=== PATIENT | female | born 1985 | race Caucasian/White ===

== ENCOUNTER → 2018-02-24 09:16 | Outpatient (CLI) | payer OTHER, SELFPAY ==
--- NOTE | 2018-02-24 | DI.US.S_ITS ---
PROCEDURE: US OB >= 14 WEEKS FETUS INDICATIONS: 20 WEEK SURVEY OUTSIDE/PRIOR DATING DATA: Last menstrual period (LMP): 12/03/16. LMP-based estimated date of delivery (MODESTO): 07/09/18. First dating scan (date and location): 02/24/18. Estimated date of delivery (MODESTO) from first dating scan: 07/10/18. TECHNIQUE: Real-time scanning was performed of the fetus, with image documentation and biometric measurements. COMPARISON: None. FINDINGS: General: A single living intrauterine gestation is present. Presentation: Breech. Placenta: Placental position is anterior, without previa. Amniotic fluid index: 15 cm, normal range is 5-24 cm. heart rate: 145 beats per minute. Maternal cervical canal: 4.2 cm long. Normal lower limit is 2.5 cm. biometrics: Biparietal diameter: 4.8 cm 20 weeks 4 days Head circumference: 18.1 cm 20 weeks 4 days Abdominal circumference: 15.4 cm 20 weeks 4 days Femur length: 3.4 cm 20 weeks 4 days Estimated gestational age from initial scan: not applicable. Composite gestational age from present scan: 20 weeks 4 days Estimated weight and percentile: 363 g 37th percentile Measurement variability for biometric dating: +/- 7 days from 14 weeks to 15 weeks 6 days gestation, +/- 10 days from 16 weeks to 21 weeks 6 days gestation, +/- 2 weeks from 22 weeks to 27 weeks 6 days gestation, +/- 3 weeks for 28 weeks gestation or later. weight reference: 4500 g or EFW >90/95% is considered macrosomia or large for gestational age. EFW <10% is small for gestational age. EFW 5% or less is considered intra-uterine growth restriction. Anatomic survey: Neuro: Ventricles are non-dilated at less than 10 mm. Cisterna magna is normal at 3-11 mm. Cerebellum is normal in size and morphology. Nuchal skin fold: Normal at less than 6 mm between 14-21 weeks gestational age. Face: Nose and lips, facial profile are normal. Spine: No evidence for spina bifida. Heart: 4-chambered heart is present, with normal ventricular outflow tracts. Diaphragm: Diaphragm is intact. Stomach: Left-sided stomach is present. Kidneys: No hydronephrosis. Normal is less than 5 mm in 2nd trimester, less than 7 mm in 3rd trimester. Cord: 3-vessel cord has orthotopic insertion. Bladder: Normal in size. Extremities: All 4 extremities identified. IMPRESSION: 1. Single intrauterine with ultrasound gestational age today is 20 weeks 4 days corresponding to ultrasound MODESTO of 07/10/18. 2. Anatomy is within normal limits. Dictated by: Marquita Garcia M.D. on 02/24/2018 at 11:28 Approved by: Marquita Garcia M.D. on 02/24/2018 at 11:52
== END ==
PROVIDERS: Family Provider Obstetrics & Gynecology; PCP Obstetrics & Gynecology; Visit Provider Obstetrics & Gynecology
DX: Z34.92 Encounter for supervision of normal pregnancy, unspecified, second trimester (principal); Z3A.20 20 weeks gestation of pregnancy
CPT/HCPCS: 76811

== ENCOUNTER → 2018-04-05 16:04 | Outpatient (CLI) | payer OTHER, SELFPAY ==
[2018-04-05 18:25] LABS: Hematocrit 35.2 % (36-46); Hemoglobin 12.1 g/dL (12.0-16.0)
[2018-04-05 20:05] LABS: GTT (PREG) 1 Hour PP 50gm Dose 127 mg/dL (76-139)
== END ==
PROVIDERS: PCP Obstetrics & Gynecology; Visit Provider Obstetrics & Gynecology
DX: Z36.9 Encounter for antenatal screening, unspecified (principal); Z3A.26 26 weeks gestation of pregnancy
CPT/HCPCS: 36415; 82950; 85014; 85018

== ENCOUNTER 2018-05-19 15:10 | Outpatient (CLI) | payer OTHER, SELFPAY ==
--- NOTE | 2018-05-19 16:13 | PM.OBTRLD ---
Visit Information Visit Information Date of evaluation: 05/19/18 Primary OB Provider: Dinora Quijano On-call OB Provider: Sonia Bassett Reason for Evaluation: Yes pre-term labor Comments/Additional reasons for admission: Patient comes in for evaluation due to feeling more vaginal fluid and some mild cramping Vital Signs Vital Signs: Blood pressure 129/80, pulse of 87 Evaluation Evaluation Baseline heart rate: 125 Variability: Moderate (11-25) monitor accelerations: Present monitor decelerations: Absent Contraction Frequency (minutes): 0 Non-invasive Membranes Rupture Test: negative Diagnosis, Plan/Disposition Final Diagnosis (1) Premature labor: Current Visit: No Status: Acute (2) 32 weeks gestation of : Current Visit: No Status: Acute Plan/Disposition Plan: AmniSure negative no contractions on the monitor patient is reassured. She is to return if her symptoms worsen otherwise keep her normal OB appointment.
== END 2018-05-19 16:16 | disposition home or self-care (01) ==
LOC: LABOR 15:52 → OB 05-20 09:59
PROVIDERS: PCP Obstetrics & Gynecology; Visit Provider Specialist
DX: Z03.71 Encounter for suspected problem with amniotic cavity and membrane ruled out (principal); R10.2 Pelvic and perineal pain; Z3A.32 32 weeks gestation of pregnancy
CPT/HCPCS: 59025; 84112; G0378; G0379

== ENCOUNTER → 2018-06-10 13:45 | Outpatient (CLI) | payer OTHER, SELFPAY ==
[2018-06-11 11:24] LABS: Strep Grp B PCR NEG for Grp B Strep
== END ==
PROVIDERS: Family Provider Obstetrics & Gynecology; PCP Obstetrics & Gynecology; Visit Provider Obstetrics & Gynecology
DX: Z34.03 Encounter for supervision of normal first pregnancy, third trimester (principal)
CPT/HCPCS: 87653

== ENCOUNTER → 2018-06-23 18:46 | Outpatient (REF) | payer OTHER, SELFPAY ==
[2018-06-23 20:18] LABS: Urine N gonorrhoeae NOT DETECTED
[2018-06-23 21:44] LABS: Urine Chlamydia NOT DETECTED
== END ==
LOC: LAB 18:46
PROVIDERS: Family Provider Obstetrics & Gynecology; PCP Obstetrics & Gynecology; Visit Provider Specialist
DX: Z34.03 Encounter for supervision of normal first pregnancy, third trimester (principal)
CPT/HCPCS: 87491; 87591

== ENCOUNTER 2018-06-30 15:18 | Outpatient (CLI) | payer OTHER, SELFPAY | END 2018-06-30 16:13 | disposition home or self-care (01) | LOC: LABOR 15:49 → OB 11-08 11:52 | PROVIDERS: Family Provider Obstetrics & Gynecology; PCP Obstetrics & Gynecology; Visit Provider Obstetrics & Gynecology | DX: Z03.71 Encounter for suspected problem with amniotic cavity and membrane ruled out (principal); Z3A.38 38 weeks gestation of pregnancy | CPT/HCPCS: 59025; 84112; G0378; G0379 ==

== ENCOUNTER → 2018-07-05 15:00 | Outpatient (CLI) | payer OTHER, SELFPAY | PROVIDERS: Family Provider Obstetrics & Gynecology; PCP Obstetrics & Gynecology | DX: Z23 Encounter for immunization (principal) | CPT/HCPCS: 90471; 90686 ==

== ENCOUNTER 2018-07-09 09:45 | Outpatient (CLI) | payer OTHER, SELFPAY | END 2018-07-09 10:40 | disposition home or self-care (01) | LOC: LABOR 10:36 → OB 07-12 08:41 | PROVIDERS: Family Provider Obstetrics & Gynecology; PCP Obstetrics & Gynecology; Visit Provider Obstetrics & Gynecology | DX: Z34.03 Encounter for supervision of normal first pregnancy, third trimester (principal); Z3A.40 40 weeks gestation of pregnancy | CPT/HCPCS: 59025; G0378; G0379 ==

== ENCOUNTER 2018-07-12 07:57 | Outpatient (CLI) | payer OTHER, SELFPAY | END 2018-07-12 09:15 | disposition home or self-care (01) | LOC: LABOR 09:20 → OB 07-14 05:41 | PROVIDERS: Family Provider Obstetrics & Gynecology; PCP Obstetrics & Gynecology; Visit Provider Obstetrics & Gynecology | DX: Z34.03 Encounter for supervision of normal first pregnancy, third trimester (principal); Z3A.40 40 weeks gestation of pregnancy | CPT/HCPCS: 59025; G0378; G0379 ==

== ENCOUNTER 2018-07-13 06:56 | Inpatient (IN) | payer OTHER, SELFPAY ==
[2018-07-13] MEDS: OXYTOCIN PREMIX 30 UNIT/500 ML PLAST..BAG IV (07:50)
[2018-07-13] MEDS: LACTATED RINGERS 1,000 ML 100 ML IV ×3 (07:50→22:59)
[2018-07-13 08:37] VITALS: BP 122/79
[2018-07-13 08:55] LABS: Add Manual Diff / Slide Review NO; Basophils Percent Auto 0.6 % (0-2); Eosinophils Percent Auto 0.6 % (2-4); Hemoglobin 13.3 g/dL (12.0-16.0); Lymphocytes Percent Auto 21.6 % (25-40); Mean Corpuscular HGB Conc 34.2 % (30-36); Mean Corpuscular Hemoglobin 29.7 PG (26-34); Mean Corpuscular Volume 86.9 fL (80-100); Monocytes Percent Auto 7.7 % (3-14); Neutrophils Absolute Auto 5800 /uL (3000-5900); Neutrophils Percent Auto 69.5 % (50-75); Platelet Count 180 X10^3/uL (150-400); Red Blood Cell Count 4.48 X10^6/uL (4.0-5.2); Red Cell Distribution Width 13.8 % (11.6-14.8); White Blood Cell Count 8.4 X10^3/uL (4.5-11.0)
[2018-07-13] MEDS: ONDANSETRON 4 MG/2 ML INJ IV (23:10)
[2018-07-14] MEDS: KETOROLAC 30 MG/ML VIAL IV ×3 (07:55→21:18)
[2018-07-14] MEDS: DERMOPLAST SPRAY 20% 60 ML 1 SPRAY TOP (18:58)
[2018-07-14] MEDS: LANOLIN OINT 7 GM 1 APPLIC TOP (18:59)
[2018-07-15] MEDS: KETOROLAC 30 MG/ML VIAL IV (03:39)
[2018-07-15 06:45] LABS: Hematocrit 31.8 % (36-46); Hemoglobin 10.7 g/dL (12.0-16.0)
[2018-07-15] MEDS: PRENATAL VIT,CALC/IRON/FOLIC 1 TABLET 1 TAB PO (09:09)
[2018-07-15] MEDS: DOCUSATE 250 MG CAPSULE PO (09:10)
[2018-07-15] MEDS: IBUPROFEN 600 MG TABLET PO ×2 (09:12→15:46)
[2018-07-15 18:09] VITALS: BP 115/71; PULSE 81; RESP 18; TEMP 36.7
--- NOTE | 2018-09-09 11:46 | PM.OBPRVD ---
Delivery date: 07/14/18 Intrapartal events: Prolonged 2nd Stage > 2.5 hours Induction method: per pitocin protocol Delivery monitor: external FHT and external uterine Route of delivery: Episiotomy description: None Laceration description: Perineal - 2nd Degree Delivery repair: vicryl and chromic Estimated blood loss (mL): 350 Anesthesia type: Epidural Complications: None Narrative: Patient complete and pushed for 3 hr and 15 min. At 3:54 a.m., a live female delivered spontaneously over an intact perineum. Nuchal cord x1 reduced on the perineum. The remainder of the body delivered without difficulty and was placed on mom's abdomen. Cord bloods were obtained. The placenta delivered intact with a 3 vessel cord at 4:00 a.m.. Pitocin was given in the IV fluids. Fundus was massaged to firm. A second-degree perineal laceration was repaired in the usual fashion. Hemostasis was achieved. Lap and sponge count correct. Apgars 5 at 1 min 6 at 5 min and 6 at 10 min. Epidural analgesia. . Mom and stable to recovery. Plan for aftercare: To routine care
--- NOTE | 2018-09-16 06:51 | P.HPOB_ITS ---
OB HPI Date/Time Date of admission: 07/13/18 Date Patient Seen: 07/13/18 Time Patient Seen: 07:45 History of Present Condition Chief complaint: EVALUATION OF LABOR : 1 Para: 0 Estimated Date of Delivery: 07/08/18 Estimated Gestational Age (weeks): 40+5 Narrative: Heather Vinson is a 33 year old female 1 para 0 at 40-,5/7 weeks gestation here for induction of labor Indications Indication for induction OB: post dates History of Present care: good care, initiated at week # (12) and number of visits (12) Dating criteria: LMP confirmed by 1st trimester US Ultrasounds: normal 1st trimester US and normal mid trimester US Obstetrical complications: none Medical complications: none Preadmission Labs Blood type: A (+) positive -: Antibody screen: negative, GBS status: negative, HBsAG: negative, HIV: negative, HSV 1: negative, HSV 2: negative and RPR/VDLR: negative -: Chlamydia screen: not detected and Gonorrhea screen: not detected -: Rubella: immune and Varicella: not immune HCT: 40.3 HCAB: negative PAP: Normal Quad screen: Normal Urine: Neg 1 hr GTT: 127 Evaluation Evaluation Baseline heart rate: 125 Variability: Moderate (11-25) monitor accelerations: Present monitor decelerations: Absent Category of Tracing: I Cervical dilation (cm): 1 Cervical effacement (%): 80 station: -1 Laboratory results: Laboratory Tests 07/13/18 07/13/18 07/15/18 07:45 07:45 06:34 WBC 8.4 RBC 4.48 Hgb 13.3 10.7 L Hct 39.0 31.8 L MCV 86.9 MCH 29.7 MCHC 34.2 RDW 13.8 Plt Count 180 Neut % (Auto) 69.5 Lymph % (Auto) 21.6 L [place] % (Auto) 7.7 Eos % (Auto) 0.6 L Baso % (Auto) 0.6 Neut # (Auto) 5800 Blood Type A Positive Antibody Screen Negative PFSH Social History Smoking Status: Never smoker Meds Home Medications Medication Instructions Recorded Confirmed Type breast pump #1 each 04/08/18 08/01/18 Rx Allergies Allergy/AdvReac Type Severity Reaction Status Date / Time No Known Drug Allergies Allergy Verified 08/01/18 14:05 Exam Vital Signs (past 8 hours): Generally: A well-developed, well-nourished female, no acute distress Lungs: Clear to auscultation bilaterally Cardiovascular: Regular rate and rhythm Fundal height: 41 cm Estimated weight: 8 lb Extremities: Trace edema, negative Homans Objective Labs Result Diagrams: 07/15/18 06:34 Assessment and Plan (1) 40 weeks gestation of : Current visit: No Status: Acute (2) Elective induction of labor planned: Current visit: No Status: Acute (3) resulting from in vitro fertilization: Current visit: No Status: Acute Plan: Plan: Assessment: 33-year-old 1 para 0 at 40-,5/7 weeks gestation for induction of labor Plan: Pitocin per protocol 2 Epidural as necessary Artificial rupture of membranes when able
--- NOTE | 2018-09-16 06:51 | PM.OBDS.1 ---
Discharge Providers Date of admission: 07/13/18 06:56 Primary care physician: Dinora Quijano MD Consults: 07/14/18 05:57 Consult to Balance Sheet Analyst Routine Comment: Discharge provider: Dinora Quijano MD Discharge Date: 07/15/18 Summary Date Patient Seen: 07/15/18 Time Patient Seen: 13:30 Hospital Course: Patient is a 33-year-old 1 para 1 who was admitted on the morning of 07/13/2018 for induction of labor at 40-,5/7 weeks gestation. She was started on Pitocin. Artificial rupture of membranes was performed at 10:44 a.m.. She received an epidural for pain management at 7:00 p.m.. She progressed to complete dilation and had a spontaneous vaginal delivery at 3:54 a.m. on 07/14/2018. She had a second-degree laceration which was repaired. Her course was unremarkable and she was discharged home on 07/15/2018 to follow up at 6 weeks. Peripartum Data Infant Delivery Method: Natural Vaginal Laceration description: Perineal - 2nd Degree Episiotomy description: None Procedures: Artificial rupture of membranes Epidural analgesia Spontaneous vaginal delivery Second-degree laceration repair complications: none Discharge Diagnosis (1) 40 weeks gestation of : Status: Acute (2) Elective induction of labor planned: Status: Acute (3) resulting from in vitro fertilization: Status: Acute (4) Normal spontaneous vaginal delivery: Status: Acute Time Spent with Patient Total time spent providing and/or coordinating discharge services: Objective Labs Result Diagrams: 07/15/18 06:34 Discharge Plan Discharge Plan Patient Disposition: Home Discharge comment: Call with fever, chills or bleeding vaginally more than a pad in an hour Discharge Med Rec/Prescriptions Prescriptions: No Action breast pump device .ROUTE .MEDSUPPLY Qty: 1 RF: 0 Follow up/Referrals: Dinora Quijano MD [Primary Care Provider] - 6 Weeks (Your follow up appointment with Dr. Quijano is scheduled on August 22 @ 2:15pm.) Provider Discharge Instructions Diet: Diet as Tolerated Activity: No intercourse Skin/Wound/Dressing Care Report to your healthcare provider any signs of infection, such as:: chills, fever, increased pain and unusual drainage Visit Report/Discharge Packet Instructions: DI for Labor and Delivery, Vaginal Stand Alone Forms: Discharge: Care Visit Report Forms: Stroke Signs & Symptoms Discharge Data Primary Care Provider: Dinora Quijano Attending Provider: Dinora Quijano Admit Date/Time: 07/13/18 06:56 Discharges patient from system. Discharge Date/Time: 07/15/18 20:05
== END 2018-07-15 20:05 | disposition home or self-care (01) | DRG 807 ==
PROVIDERS: Admitting Provider Obstetrics & Gynecology; Family Provider Obstetrics & Gynecology; PCP Obstetrics & Gynecology; Visit Provider Obstetrics & Gynecology
DX: O69.81X0 Labor and delivery complicated by cord around neck, without compression, not applicable or unspecified (principal); Z37.0 Single live birth; O70.1 Second degree perineal laceration during delivery; Z3A.40 40 weeks gestation of pregnancy
CPT/HCPCS: 01967; 36415; 59050; 59400; 76815; 84112; 85014; 85018; 85025; 86850; 86900; 86901; G0379; J1885; J2405; J2590; J3010

== ENCOUNTER 2018-10-26 10:45 | Outpatient (RCR) | payer OTHER, SELFPAY ==
--- NOTE | 2018-10-19 12:04 | PT.OIE ---
Current Diagnoses Unspecified urinary incontinence (10/18/18) Provider Visit Care Team Role Provider Type Constance Benitez MD Family Provider Physician Primary Care Provider Specialty: Family Practice Address: [address] [place] [address], [address] Email: [email or web address] Dinora Quijano MD Attending Provider Physician Specialty: CLINICAL REHABILITATION LIAISON Address: [address] [place] [address], [address] Email: [email or web address] Physical Therapy Initial Evaluation PT-OP-A Visit Information Start: 10/19/18 11:24 Freq: Status: Active Protocol: Document 10/18/18 14:30 [facility] (Rec: 10/19/18 11:38 [facility] [email or web address]) Out-Patient Physical Therapy Visit Information Visit Information Visit Type Initial Evaluation Visit Note 33 year old female 3 months from a vaginal with 2nd degree tear and forceps delivery Visit Start Time 14:30 Visit Stop Time 15:15 Total Visit Minutes 45 Visit Number 1 Evaluation Information Evaluation Date 10/18/18 PT-OP-B Current Condition Start: 10/19/18 11:24 Freq: Status: Active Protocol: Document 10/18/18 14:30 [facility] (Rec: 10/19/18 11:38 [facility] [email or web address]) Current Condition History of Current Condition Onset Date 07/14/18 Current Complaints urinary incontinence, low back and pelvic pressure, dysparunia History of Current Condition 33 year old female 3 months post , vaginal delivery with 2nd degree tear and forceps use who is trying to return to exercise. She has had urinary incontinence since her delivery but she does not this is getting better. She is currently leaking 2 xms per week but was leaking multiple times per week. She has started to return to exercise but she wants to make sure that she is doing everything right and not damaging her pelvic floor. She is also trying to rerun to intercourse but this has been painful. Treatment Goals Patient/Caregiver Goals to strengthen her pelvic floor and be able to return to exercise safely, return to intercourse without pain PT-OP-C Subjective Start: 10/19/18 11:24 Freq: Status: Active Protocol: Document 10/18/18 14:30 [facility] (Rec: 10/19/18 11:38 [facility] [email or web address]) Patient Questionnaires Pelvic Pain and Urgency/Frequency Patient Symptom Scale Pelvic Pain Score 15 PT-OP-F Manual Assessment Start: 10/19/18 11:24 Freq: Status: Active Protocol: Document 10/18/18 14:30 [facility] (Rec: 10/19/18 11:38 [facility] [email or web address]) Manual Assessments Soft Tissue Assessment Soft Tissue Mobility Assessment with visual inspection of the perineum there is redness that looks like tissue healing, good mobility of the perineum. Guarding in the left lateral wall of the levator ani with pain PT-OP-I Pelvic Floor Start: 10/19/18 11:24 Freq: Status: Active Protocol: Document 10/18/18 14:30 [facility] (Rec: 10/19/18 11:38 [facility] [email or web address]) Pelvic Floor Assessment Urine Pelvic Floor Surgery No Urinary Symptoms Urge Sensation Other Urinary Symptoms urinary leakage Leakage Size Small Leakage Cause Urge Leaks Per Day 2 per month now Voiding Frequency 7-10 xms per day Nocturia 2 Urine Pad Type Panty Liner Pelvic Clock Pelvic Clock 3-6 Guarding Tightness Pelvic Clock 6-9 Guarding Pelvic Clock Other pain to palpation over the left lateral wall Perineal Descent Resting Present SEMG (uV) Baseline 1.5 10 Second Contraction 6.6 Recruitment Pattern Fair Relaxation Poor/Slow Holding Fair Stability of Hold Poor/Slow SEMG Stability of Rest Fair Contraction Ability Voluntary Contraction Weak Voluntary Relaxation Weak Manual Muscle Testing Left 2 Manual Muscle Testing Right 1 Manual Muscle Testing Anterior 2 Manual Muscle Testing Posterior 3 Muscle Endurance (Seconds) 3 PT-OP-Q Treatments Start: 10/19/18 11:24 Freq: Status: Active Protocol: Document 10/18/18 14:30 [facility] (Rec: 10/19/18 12:03 [facility] [email or web address]) Therapeutic Exercises Supine Exercises 2 Supine Exercise Name pelvic stretches of happy baby , piriformis stretch, reece pose Comments HEP 1 Supine Exercise Name pelvic floor long holds with EMG biofeedback Side bilateral Reps/Minutes 10 second hold with 10 second relax Comments gave 5 second hold for home with 10 second relaxation PT-OP-T Assessment and Plan Start: 10/19/18 11:24 Freq: Status: Active Protocol: Document 10/18/18 14:30 [facility] (Rec: 10/19/18 12:03 [facility] [email or web address]) Physical Therapy Assessment Rehab Potential Rehabilitation Potential Excellent Evaluation Complexity Number of Personal Factors/Comorbidities 0 Number of Body Systems Impaired 1-2 Clinical Presentation at Evaluation Stable Impairments Impairments Activity Tolerance Pain Soft Tissue Mobility Strength Tone Other Impairments urinary incontinence Goals Four Impairment The patient lacks a home program for core stabilization Contracts Attorney Goal (LTG) Heather is educated in a safe exercise program for her pelvic floor and demonstrates good pelvic floor and transverse abdominal recruitment with her exercises LTG Duration 6-8 weeks Three Impairment pelvic pain and guarding of the left lateral wall of the levator ani Contracts Attorney Goal (LTG) Heather is educated in relaxed awareness of the pelvic floor and given a home stretching program to help decrease lateral side wall levator ani tightness and spasm. She is able to resume intercourse with decreased pain LTG Duration 6-8 weeks Two Impairment urinary incontinence Short Term Goal (STG) Decrease c/o urinary incontinence and Heather is able to gradually return to a safe exercise program that does not cause leakage STG Duration 5 weeks One Impairment decreased strength of the levator ani (anterior 2/5, left 2/5, right 1/5,) Contracts Attorney Goal (LTG) Improve pelvic floor stength of all parts of the levator ani to 3/5 MMT or better for improved support of the bladder LTG Duration 6-8 weeks Assessment Summary Assessment Heather presents to Physical therapy 3 months s/p vaginal delivery with 2nd degree tear and use of forceps. She does report today that since she made this appointment her urinary symptoms have been improving. She is leaking intermittently now and is wanting to resume a exercise program at [facility]. She is seeking advice to make sure she is not putting too much strain on her pelvic floor. She also reports returning to intercourse has been painful. With examination of the pelvic floor there is still tissue healing in the perineum , the perineum fascia is moving well without a lot of scarring. She is tender on the left lateral wall of the illiococcygeus with muscle guarding present here. It was difficult for Heather to relax her pelvic floor but with manual and verbal cueing and then with biofeedback she was able to fully relax. She is weak 2/5 MMT anterior wall, 3/5 posterior wall, 1/5 right lateral wall, and 2/5 left lateral wall. Endurance of pelvic floor contractions is limited to a few seconds at this time. Heather was given a home program starting with facilitation of the pelvic floor and gentle stretches for pelvic pain symptoms with intercourse. She tolerated treatment well and is a good candidate for PT . Physical Therapy Plan Frequency and Duration Frequency of Treatment 1x/Week Duration of Treatment 8 Plan of Care Start Date 10/18/18 Plan of Care End Date 12/20/18 Therapeutic Interventions Therapeutic Interventions Home Exercise Program Manual Therapy Self-Care/Home Management Soft Tissue Mobilization Therapeutic Exercises Modalities Biofeedback Next Visit Focus/Plan Next Note Type Treatment Note Next Visit Plan reassess resting tone of the pelvic floor and continue working on pelvic floor exercises along with relaxed awareness of the pelvic floor for pain
--- NOTE | 2018-10-19 12:05 | PT.OPPOC ---
Current Diagnoses Unspecified urinary incontinence (10/18/18) Provider Visit Care Team Role Provider Type Constance Benitez MD Family Provider Physician Primary Care Provider Specialty: Family Practice Address: [address] [place] [address], [address] Email: [email or web address] Dinora Quijano MD Attending Provider Physician Specialty: AREA FIELD WORKER Address: [address] [place] [address], [address] Email: [email or web address] Plan Of Care PT-OP-T Assessment and Plan Start: 10/19/18 11:24 Freq: Status: Active Protocol: Document 10/18/18 14:30 [facility] (Rec: 10/19/18 12:03 [facility] [email or web address]) Physical Therapy Assessment Rehab Potential Rehabilitation Potential Excellent Evaluation Complexity Number of Personal Factors/Comorbidities 0 Number of Body Systems Impaired 1-2 Clinical Presentation at Evaluation Stable Impairments Impairments Activity Tolerance Pain Soft Tissue Mobility Strength Tone Other Impairments urinary incontinence Goals Four Impairment The patient lacks a home program for core stabilization Mcc Goal (LTG) Heather is educated in a safe exercise program for her pelvic floor and demonstrates good pelvic floor and transverse abdominal recruitment with her exercises LTG Duration 6-8 weeks Three Impairment pelvic pain and guarding of the left lateral wall of the levator ani Ship Cleaner Goal (LTG) Heather is educated in relaxed awareness of the pelvic floor and given a home stretching program to help decrease lateral side wall levator ani tightness and spasm. She is able to resume intercourse with decreased pain LTG Duration 6-8 weeks Two Impairment urinary incontinence Short Term Goal (STG) Decrease c/o urinary incontinence and Heather is able to gradually return to a safe exercise program that does not cause leakage STG Duration 5 weeks One Impairment decreased strength of the levator ani (anterior 2/5, left 2/5, right 1/5,) Ship Cleaner Goal (LTG) Improve pelvic floor strength of all parts of the levator ani to 3/5 MMT or better for improved support of the bladder LTG Duration 6-8 weeks Assessment Summary Assessment Heather presents to Physical therapy 3 months s/p vaginal delivery with 2nd degree tear and use of forceps. She does report today that since she made this appointment her urinary symptoms have been improving. She is leaking intermittently now and is wanting to resume a exercise program at [facility]. She is seeking advice to make sure she is not putting too much strain on her pelvic floor. She also reports returning to intercourse has been painful. With examination of the pelvic floor there is still tissue healing in the perineum , the perineum fascia is moving well without a lot of scarring. She is tender on the left lateral wall of the illiococcygeus with muscle guarding present here. It was difficult for Heather to relax her pelvic floor but with manual and verbal cueing and then with biofeedback she was able to fully relax. She is weak 2/5 MMT anterior wall, 3/5 posterior wall, 1/5 right lateral wall, and 2/5 left lateral wall. Endurance of pelvic floor contractions is limited to a few seconds at this time. Heather was given a home program starting with facilitation of the pelvic floor and gentle stretches for pelvic pain symptoms with intercourse. She tolerated treatment well and is a good candidate for PT . Physical Therapy Plan Frequency and Duration Frequency of Treatment 1x/Week Duration of Treatment 8 Plan of Care Start Date 10/18/18 Plan of Care End Date 12/20/18 Therapeutic Interventions Therapeutic Interventions Home Exercise Program Manual Therapy Self-Care/Home Management Soft Tissue Mobilization Therapeutic Exercises Modalities Biofeedback Next Visit Focus/Plan Next Note Type Treatment Note Next Visit Plan reassess resting tone of the pelvic floor and continue working on pelvic floor exercises along with relaxed awareness of the pelvic floor for pain Plan of Care Dates Plan of Care Start Date 10/18/18 Plan of Care End Date 12/20/18 Please Sign and Return: I have reviewed this Plan of Care and certify that the skilled therapy services above are required to meet the patient?s needs. Physician Signature Date Printed Name and Credentials Clinical Instructor Signature Printed Name and Credentials
--- NOTE | 2018-10-26 14:38 | PT.OTN ---
Current Diagnoses Unspecified urinary incontinence (10/26/18) Physical Therapy Treatment Note PT-OP-A Visit Information Start: 10/19/18 11:24 Freq: Status: Active Protocol: Document 10/26/18 10:45 [facility] (Rec: 10/26/18 14:38 [facility] [email or web address]) Out-Patient Physical Therapy Visit Information Visit Information Visit Type Treatment Note Visit Start Time 10:45 Visit Stop Time 11:30 Total Visit Minutes 45 Visit Number 2 Evaluation Information Evaluation Date 10/18/18 PT-OP-B Current Condition Start: 10/19/18 11:24 Freq: Status: Active Protocol: Document 10/18/18 14:30 [facility] (Rec: 10/19/18 11:38 [facility] [email or web address]) Current Condition History of Current Condition Onset Date 07/14/18 Current Complaints urinary incontinence, low back and pelvic pressure, dysparunia History of Current Condition 33 year old female 3 months post , vaginal delivery with 2nd degree tear and forceps use who is trying to return to exercise. She has had urinary incontinence since her delivery but she does not this is getting better. She is currently leaking 2 xms per week but was leaking multiple times per week. She has started to return to exercise but she wants to make sure that she is doing everything right and not damaging her pelvic floor. She is also trying to rerun to intercourse but this has been painful. Treatment Goals Patient/Caregiver Goals to strengthen her pelvic floor and be able to return to exercise safely, return to intercourse without pain PT-OP-C Subjective Start: 10/19/18 11:24 Freq: Status: Active Protocol: Document 10/26/18 12:09 [facility] (Rec: 10/26/18 12:12 [facility] [email or web address]) OP-PT Subjective Patient Comments Patient Comments Heather reports she can tell it is her left side that she has pain with during intercourse. She has been doing good overall with decreased leakage, tried gentle hopping with no symptoms, has difficulty feeling the stretch into the posterior pelvic floor due to tightness in the front of her hips PT-OP-F Manual Assessment Start: 10/19/18 11:24 Freq: Status: Active Protocol: Document 10/18/18 14:30 [facility] (Rec: 10/19/18 11:38 [facility] [email or web address]) Manual Assessments Soft Tissue Assessment Soft Tissue Mobility Assessment with visual inspection of the perineum there is redness that looks like tissue healing, good mobility of the perineum. Guarding in the left lateral wall of the levator ani with pain PT-OP-I Pelvic Floor Start: 10/19/18 11:24 Freq: Status: Active Protocol: Document 10/18/18 14:30 [facility] (Rec: 10/19/18 11:38 [facility] [email or web address]) Pelvic Floor Assessment Urine Pelvic Floor Surgery No Urinary Symptoms Urge Sensation Other Urinary Symptoms urinary leakage Leakage Size Small Leakage Cause Urge Leaks Per Day 2 per month now Voiding Frequency 7-10 xms per day Nocturia 2 Urine Pad Type Panty Liner Pelvic Clock Pelvic Clock 3-6 Guarding Tightness Pelvic Clock 6-9 Guarding Pelvic Clock Other pain to palpation over the left lateral wall Perineal Descent Resting Present SEMG (uV) Baseline 1.5 10 Second Contraction 6.6 Recruitment Pattern Fair Relaxation Poor/Slow Holding Fair Stability of Hold Poor/Slow SEMG Stability of Rest Fair Contraction Ability Voluntary Contraction Weak Voluntary Relaxation Weak Manual Muscle Testing Left 2 Manual Muscle Testing Right 1 Manual Muscle Testing Anterior 2 Manual Muscle Testing Posterior 3 Muscle Endurance (Seconds) 3 PT-OP-Q Treatments Start: 10/19/18 11:24 Freq: Status: Active Protocol: Document 10/26/18 10:45 [facility] (Rec: 10/26/18 14:38 [facility] [email or web address]) Therapeutic Exercises Supine Exercises 5 Supine Exercise Name roll outs with theraband 4 Supine Exercise Name transverse abdominal facilitation and TA with marches 3 Supine Exercise Name iliopsoas stretch in anup test position 2 Supine Exercise Name pelvic stretches of happy baby , piriformis stretch, reece pose Comments HEP 1 Supine Exercise Name pelvic floor long holds with EMG biofeedback Side bilateral Reps/Minutes 10 second hold with 10 second relax Comments gave 5 second hold for home with 10 second relaxation Other Exercises 2 Other Exercise Name 1/2 kneeling hip flexor stretch 1 Other Exercise Name quadraped TA faciliation PT-OP-T Assessment and Plan Start: 10/19/18 11:24 Freq: Status: Active Protocol: Document 10/26/18 10:45 [facility] (Rec: 10/26/18 14:38 [facility] [email or web address]) Physical Therapy Assessment Assessment Summary Assessment Heather is tight in her hip flexors right greater than left and she is unable to feel the posterior pelvic floor stretch when she is in reece pose due to this. I added in hip flexor stretching today to her stretches. Her resting tone was more elevated today but this did not increase with her exercises. Average tone of the levator ani si 9.8 uv with maximum of 22.4 uv Physical Therapy Plan Frequency and Duration Frequency of Treatment 1x/Week Duration of Treatment 8 Plan of Care Start Date 10/18/18 Plan of Care End Date 12/20/18 Therapeutic Interventions Therapeutic Interventions Home Exercise Program Manual Therapy Self-Care/Home Management Soft Tissue Mobilization Therapeutic Exercises Modalities Biofeedback Next Visit Focus/Plan Next Note Type Treatment Note Next Visit Plan Progress transverse abdominals , look into hip capsule mobilizations for improved posterior glide of the hips, progress pelvic floor
--- NOTE | 2019-08-21 12:00 | PT.OPDS ---
Current Diagnoses Low back pain (10/26/18) Unspecified urinary incontinence (10/26/18) Visit Care Team Role Provider Type Constance Benitez MD Family Provider Physician Primary Care Provider Specialty: Family Practice Address: [address] [place] [address], [place], [address] Email: [email or web address] Dinora Quijano MD Attending Provider Physician Specialty: SERVICE ATTENDANT [place] Address: [address] [place] [address], [id number] Email: [email or web address] Visit Number Visit Number 2 Discharge Summary PT-OP-B Current Condition Start: 10/19/18 11:24 Freq: Status: Active Protocol: Document 10/18/18 14:30 [facility] (Rec: 10/19/18 11:38 [facility] [email or web address]) Current Condition History of Current Condition Onset Date 07/14/18 Current Complaints urinary incontinence, low back and pelvic pressure, dysparunia History of Current Condition 33 year old female 3 months post , vaginal delivery with 2nd degree tear and forceps use who is trying to return to exercise. She has had urinary incontinence since her delivery but she does not this is getting better. She is currently leaking 2 xms per week but was leaking multiple times per week. She has started to return to exercise but she wants to make sure that she is doing everything right and not damaging her pelvic floor. She is also trying to rerun to intercourse but this has been painful. Treatment Goals Patient/Caregiver Goals to strengthen her pelvic floor and be able to return to exercise safely, return to intercourse without pain PT-OP-C Subjective Start: 10/19/18 11:24 Freq: Status: Active Protocol: Document 10/26/18 12:09 [facility] (Rec: 10/26/18 12:12 [facility] [email or web address]) OP-PT Subjective Patient Comments Patient Comments Heather reports she can tell it is her left side that she has pain with during intercourse. She has been doing good overall with decreased leakage, tried gentle hopping with no symptoms, has difficulty feeling the stretch into the posterior pelvic floor due to tightness in the front of her hips PT-OP-F Manual Assessment Start: 10/19/18 11:24 Freq: Status: Active Protocol: Document 10/18/18 14:30 [facility] (Rec: 10/19/18 11:38 [facility] [email or web address]) Manual Assessments Soft Tissue Assessment Soft Tissue Mobility Assessment with visual inspection of the perineum there is redness that looks like tissue healing, good mobility of the perineum. Guarding in the left lateral wall of the levator ani with pain PT-OP-I Pelvic Floor Start: 10/19/18 11:24 Freq: Status: Active Protocol: Document 10/18/18 14:30 [facility] (Rec: 10/19/18 11:38 [facility] [email or web address]) Pelvic Floor Assessment Urine Pelvic Floor Surgery No Urinary Symptoms Urge Sensation Other Urinary Symptoms urinary leakage Leakage Size Small Leakage Cause Urge Leaks Per Day 2 per month now Voiding Frequency 7-10 xms per day Nocturia 2 Urine Pad Type Panty Liner Pelvic Clock Pelvic Clock 3-6 Guarding,Tightness Pelvic Clock 6-9 Guarding Pelvic Clock Other pain to palpation over the left lateral wall Perineal Descent Resting Present SEMG (uV) Baseline 1.5 10 Second Contraction 6.6 Recruitment Pattern Fair Relaxation Poor/Slow Holding Fair Stability of Hold Poor/Slow SEMG Stability of Rest Fair Contraction Ability Voluntary Contraction Weak Voluntary Relaxation Weak Manual Muscle Testing Left 2 Manual Muscle Testing Right 1 Manual Muscle Testing Anterior 2 Manual Muscle Testing Posterior 3 Muscle Endurance (Seconds) 3 PT-OP-T Assessment and Plan Start: 10/19/18 11:24 Freq: Status: Active Protocol: Document 08/21/19 12:00 [facility] (Rec: 08/21/19 12:00 [facility] [email or web address]) Physical Therapy Plan Discharge Physical Therapy Discharge Comments the patient has not been seen since her last treatment October 2018. She had reported improved symptoms as of her last visit. She will be discharged at this time
== END 2019-08-25 11:31 ==
LOC: PHYS 10:45
PROVIDERS: Family Provider Family Medicine; PCP Family Medicine; Visit Provider Obstetrics & Gynecology
DX: R32 Unspecified urinary incontinence (principal)
CPT/HCPCS: 97110; 97161

== ENCOUNTER → 2019-09-22 07:20 | Outpatient (CLI) | payer OTHER, SELFPAY ==
[2019-09-22 08:50] LABS: Add Manual Diff / Slide Review NO; Basophils Absolute Auto 100 /uL (0-100); Basophils Percent Auto 1.1 % (0-2); Eosinophils Absolute Auto 100 /uL (0-450); Eosinophils Percent Auto 1.4 % (2-4); Hematocrit 41.9 % (36-46); Lymphocytes Absolute Auto 1800 /uL (1100-4500); Lymphocytes Percent Auto 35.9 % (25-40); Mean Corpuscular HGB Conc 33.5 % (30-36); Mean Corpuscular Hemoglobin 29.8 PG (26-34); Monocytes Absolute Auto 400 /uL (0-900); Monocytes Percent Auto 7.4 % (3-14); Neutrophils Absolute Auto 2700 /uL (1500-7000); Neutrophils Percent Auto 54.2 % (50-75); Platelet Count 202 X10^3/uL (150-400)
[2019-09-22 09:34] LABS: BUN Creatinine Ratio 18.6 (6-22); Blood Urea Nitrogen 13 mg/dL (7-17); Calcium 9.7 mg/dL (8.4-10.2); Carbon Dioxide 26 mmol/L (22-32); Chloride 104 mmol/L (98-107); Cholesterol 232 mg/dL (140-199); Estimated Glomerular Filt Rate > 60.0 mL/min (>60); Glucose 80 mg/dL (70-100); HEMOLYSIS < 15 (0-50); Potassium 4.4 mmol/L (3.4-5.1); Sodium 140 mmol/L (137-145)
[2019-09-22 10:23] LABS: Vitamin B12 589 pg/mL (239-931)
== END ==
PROVIDERS: PCP Family Medicine; Visit Provider Family Medicine
DX: E55.9 Vitamin D deficiency, unspecified (principal); R53.83 Other fatigue; Z83.438 Family history of other disorder of lipoprotein metabolism and other lipidemia
CPT/HCPCS: 36415; 80048; 82306; 82465; 82607; 84443; 85025

== ENCOUNTER → 2020-05-31 08:35 | Outpatient (CLI) | payer OTHER, SELFPAY ==
--- NOTE | 2020-05-31 08:36 | DI.US.S_ITS ---
LIMITED ULTRASOUND OF LEFT BREAST: 05/31/2020 CLINICAL: Palpable left breast lump. Comparison is made to exam dated: 05/31/2020 [facility]. Color flow and real-time ultrasound of the left breast 3 o'clock, and retroareolar regions were performed. Salgado scale images of the real-time examination were reviewed. There are two oval masses with circumscribed margins in the left breast superior lateral quadrant posterior depth with the long axis parallel to the skin. They measure 0.3 x 0.5 x 0.6 cm and 0.9. x 0.7 x 0.3 cm. These oval masses are hypoechoic with subtle small echogenic zachariah. These correlate as palpated but were not seen on the prior mammogram. Color flow imaging demonstrates that there is hilar vascularity present. No sonographic abnormality in the area of periareolar skin thickening. Normal lymph nodes are present in the axilla. IMPRESSION: PROBABLY BENIGN The two oval masses in the left breast are most consistent with lymph nodes and are probably benign. A follow-up ultrasound in 6 months is recommended. The periareolar skin thickening appears benign. Clinical follow up only. Findings and recommendations were conveyed to the patient at time of exam. This exam was interpreted at Station ID: [id number]. Electronically Signed By: Khushboo rodriguez/:05/31/2020 10:36:36 letter sent: Followup Recommended Ultrasound BI-RADS: 3 Probably benign
--- NOTE | 2020-05-31 08:36 | DI.MG.S_ITS ---
BILATERAL DIGITAL DIAGNOSTIC MAMMOGRAM 3D/2D: 05/31/2020 CLINICAL: Baseline exam. Left breast lump. No prior exams were available for comparison. The tissue of both breasts is extremely dense, which lowers the sensitivity of mammography. There is asymmetric skin thickening in the left breast at 7 o'clock in the retroareolar region. No other significant masses, calcifications, or other findings are seen in either breast. Specifically, no finding to correspond to the patient's 3:00 posterior palpable abnormality. IMPRESSION: INCOMPLETE: NEEDS ADDITIONAL IMAGING EVALUATION There is no abnormality seen in the left breast to correspond with the palpable abnormality indicated by a triangular marker at 3 o'clock in the posterior depth, however, ultrasound is recommended. This was performed immediately following this exam. The periareolar skin thickening in the anterior left breast is indeterminate. Ultrasound of this area is also recommended and was performed following this study. This exam was interpreted at Station ID: [id number]. NOTE: For mammograms, a report in lay terms will be sent to the patient. Approximately 15% of breast malignancies will not be visualized mammographically. In the management of a palpable breast mass, a negative mammogram must not discourage biopsy of a clinically suspicious lesion. Electronically Signed By: Khushboo rodriguez/:05/31/2020 09:53:18 ACR BI-RADS Category 0: Incomplete [id number]
== END ==
PROVIDERS: PCP Family Medicine; Referring Provider Nurse Practitioner; Visit Provider Nurse Practitioner
DX: R92.8 Other abnormal and inconclusive findings on diagnostic imaging of breast (principal); N63.21 Unspecified lump in the left breast, upper outer quadrant; Z80.3 Family history of malignant neoplasm of breast
CPT/HCPCS: 76642; 77066; G0279

== ENCOUNTER → 2020-11-06 06:38 | Outpatient (CLI) | payer OTHER, SELFPAY ==
[2020-11-06 08:16] LABS: Add Manual Diff / Slide Review NO; Basophils Absolute Auto 0 /uL (0-100); Basophils Percent Auto 0.4 % (0-2); Eosinophils Absolute Auto 100 /uL (0-450); Eosinophils Percent Auto 0.8 % (2-4); Hematocrit 41.9 % (36-46); Hemoglobin 13.7 g/dL (12.0-16.0); Lymphocytes Absolute Auto 1500 /uL (1100-4500); Lymphocytes Percent Auto 22.3 % (25-40); Mean Corpuscular HGB Conc 32.6 % (30-36); Mean Corpuscular Hemoglobin 29.5 PG (26-34); Mean Corpuscular Volume 90.5 fL (80-100); Monocytes Absolute Auto 400 /uL (0-900); Monocytes Percent Auto 5.2 % (3-14); Neutrophils Absolute Auto 4900 /uL (1500-7000); Neutrophils Percent Auto 71.3 % (50-75); Platelet Count 189 X10^3/uL (150-400); Red Blood Cell Count 4.64 X10^6/uL (4.0-5.2); Red Cell Distribution Width 13.5 % (11.6-14.8); White Blood Cell Count 6.9 X10^3/uL (4.5-11.0)
[2020-11-06 08:20] LABS: Hemoglobin A1C% w Est Avg Glu 4.8 % (4.0-6.0)
[2020-11-06 08:43] LABS: Alanine Aminotransferase 15 IU/L (<35); Albumin 3.7 g/dL (3.5-5.0); Albumin Globulin Ratio 1.4 (1.0-2.8); Alkaline Phosphatase 37 U/L (38-126); Aspartate Aminotransferase 23 IU/L (14-36); BUN Creatinine Ratio 19.6 (6-22); Bilirubin Total 0.3 mg/dL (0.2-1.3); Blood Urea Nitrogen 11 mg/dL (7-17); Calcium 8.9 mg/dL (8.4-10.2); Carbon Dioxide 27 mmol/L (22-32); Chloride 104 mmol/L (98-107); Cholesterol 163 mg/dL (140-199); Estimated Glomerular Filt Rate > 60.0 mL/min (>60); Globulin 2.7 g/dL (1.7-4.1); Glucose 84 mg/dL (70-100); HDL Cholesterol 75 mg/dL (40-60); HEMOLYSIS < 15 (0-50); LDL Cholesterol Calculated 64 mg/dL (<100); Sodium 132 mmol/L (137-145); Total Protein 6.4 g/dL (6.3-8.2); Triglycerides 120 mg/dL (35-150)
[2020-11-06 08:53] LABS: Vitamin D 25 Hydroxy (D3) 44.2 ng/mL (30.0-100.0)
[2020-11-06 09:28] LABS: Appearance Urine UA CLOUDY; Bilirubin Urine UA NEGATIVE (NEGATIVE); Color Urine UA YELLOW; Glucose Urine UA NEGATIVE (Negative); Ketones Urine UA NEGATIVE (NEGATIVE); Leukocyte Esterase Urine UA TRACE (NEGATIVE); Nitrite Urine UA NEGATIVE (Negative); Occult Blood Urine UA NEGATIVE (Negative); Protein Urine UA NEGATIVE (Negative); Specific Gravity Urine UA 1.015 (1.000-1.035); Urobilinogen Urine UA 0.2 E.U./dL (0.2)
[2020-11-06 09:41] LABS: pH Urine UA 7.5 (4.5-8.0)
[2020-11-06 09:42] LABS: Bacteria Urine None Seen; RBC Urine None Seen (0-5/HPF)
[2020-11-06 09:50] LABS: Amorphous Sediment Urine 3+; Squamous Epithelial Cell Urine 10-30 /HPF (0-5/HPF); WBC Urine 5-10/HPF (0-5/HPF)
[2020-11-06 20:46] LABS: HIV 1 & 2 Ab/Ag 4th Gen Combo NEGATIVE (NEGATIVE); Hep C Virus Ab w/Reflex Quant NEGATIVE s/c (NEGATIVE); Hepatitis B Surface Antigen NEGATIVE s/c (NEGATIVE); Rubella Antibody IgG 42.6 IU/mL (>15)
[2020-11-07 06:36] LABS: Varicella IgG Antibody <135 index (Immune >165)
[2020-11-07 08:09] LABS: RPR Screen Non Reactive (Non Reactive)
== END ==
PROVIDERS: PCP Family Medicine; Referring Provider Obstetrics & Gynecology; Visit Provider Family Medicine
DX: Z34.81 Encounter for supervision of other normal pregnancy, first trimester (principal); E78.5 Hyperlipidemia, unspecified; F41.9 Anxiety disorder, unspecified
CPT/HCPCS: 36415; 80053; 80055; 80061; 81003; 81015; 82306; 83036; 86787; 86803; 86850; 86900; 86901; 87077; 87086; 87389

== ENCOUNTER → 2020-11-12 11:02 | Outpatient (CLI) | payer OTHER, SELFPAY ==
[2020-11-12] MEDS: COVID-19 VACC #1, MRNA(MOD) 100 MCG/0.5 ML VIAL IM (11:12)
== END ==
PROVIDERS: PCP Family Medicine; Visit Provider Internal Medicine
DX: Z23 Encounter for immunization (principal)
CPT/HCPCS: 0011A; 91301

== ENCOUNTER → 2020-12-03 10:34 | Outpatient (CLI) | payer OTHER, SELFPAY ==
[2020-12-04 20:53] LABS: AFP, Serum 17.4 ng/mL (.); Calc Gestational Age Ultrasound (.); Estriol, Free 0.83 ng/mL (.); Inhibin A, Dimeric 129.52 pg/mL (.); Inhibin A, MoM 0.84 (.); Maternal Ethnicity Caucasian (.); Maternal Weight 166 lbs (.); Number of Fetuses No (.); OSBR Risk 1 IN 10000 (.); Results Report (.); Test Results *Screen Negative* (.); hCG, MoM 1.52 (.); hCG, Serum 54620 mIU/mL (.)
[2020-12-05 02:36] LABS: Chlamydia trachomatis NAA Negative (Negative); Neisseria gonorrhoeae NAA Negative (Negative)
== END ==
PROVIDERS: PCP Family Medicine; Referring Provider Obstetrics & Gynecology; Visit Provider Obstetrics & Gynecology
DX: Z34.82 Encounter for supervision of other normal pregnancy, second trimester (principal); Z3A.16 16 weeks gestation of pregnancy
CPT/HCPCS: 36415; 82105; 82677; 84702; 86336; 87491; 87591

== ENCOUNTER → 2020-12-12 08:06 | Outpatient (CLI) | payer OTHER, SELFPAY ==
[2020-12-12] MEDS: COVID-19 VACC #2, MRNA(MOD) 100 MCG/0.5 ML VIAL IM (08:12)
== END ==
PROVIDERS: PCP Family Medicine; Visit Provider Internal Medicine
DX: Z23 Encounter for immunization (principal)
CPT/HCPCS: 0012A; 91301

== ENCOUNTER → 2020-12-23 08:55 | Outpatient (CLI) | payer OTHER, SELFPAY ==
--- NOTE | 2020-12-23 08:55 | DI.US.S_ITS ---
PROCEDURE: US OB >= 14 WEEKS FETUS INDICATIONS: ANATOMY OUTSIDE/PRIOR DATING DATA: Last menstrual period (LMP): 08/10/2020. LMP-based estimated date of delivery (MODESTO): 05/17/2021. First dating scan (date and location): 12/23/2020 Dr. AZAR. Estimated date of delivery (MODESTO) from first dating scan: 05/17/2021. TECHNIQUE: Real-time scanning was performed of the fetus, with image documentation and biometric measurements. Endovaginal scanning: Not performed. COMPARISON: [facility], , OB >= 14 WEEKS FETUS, 12/03/2020, 10:24. FINDINGS: General: A single living intrauterine gestation is present. Presentation: Vertex. Placenta: Placental position is posterior, without previa. Amniotic fluid index: 13 cm, normal range is 5-24 cm. heart rate: 150 beats per minute. Maternal cervical canal: 2.9 cm long and is within normal limits. Normal lower limit is 2.5 cm. biometrics: Biparietal diameter: 4.4 cm, 19 weeks 2 days Head circumference: 15.6 cm, 18 weeks 3 days Abdominal circumference: 15.3 cm, 20 weeks 3 days Femur length: 2.6 cm, 18 weeks 0 days Estimated gestational age from initial scan: 19 weeks 2 days. Composite gestational age from present scan: 19 weeks 0 days Estimated weight and percentile: 282 g, 43rd percentile Measurement variability for biometric dating: +/- 7 days from 14 weeks to 15 weeks 6 days gestation, +/- 10 days from 16 weeks to 21 weeks 6 days gestation, +/- 2 weeks from 22 weeks to 27 weeks 6 days gestation, +/- 3 weeks for 28 weeks gestation or later. weight reference: 4500 g or EFW >90/95% is considered macrosomia or large for gestational age. EFW <10% is small for gestational age. EFW 5% or less is considered intra-uterine growth restriction. Anatomic survey: Neuro: Ventricles are non-dilated at less than 10 mm. Cisterna magna is normal at 3-11 mm. Cerebellum is normal in size and morphology. Nuchal skin fold: Normal at less than 6 mm between 14-21 weeks gestational age. Face: Orbits are normal. Profile, nose and lips are not well seen. Spine: No evidence for spina bifida. Heart: 4-chambered heart is present. LVOT appears normal. RVOT not well seen. Diaphragm: Diaphragm is intact. Stomach: Left-sided stomach is present. Kidneys: No hydronephrosis. Normal is less than 5 mm in 2nd trimester, less than 7 mm in 3rd trimester. Cord: 3-vessel cord has orthotopic insertion. Bladder: Normal in size. Extremities: All 4 extremities identified. IMPRESSION: 1. Almodovar living intrauterine at 19 weeks 0 days based on today's ultrasound. This is concordant with the prior ultrasound. There is expected interval growth. Fetus is in the 43rd percentile for weight. 2. Normal placenta and amniotic fluid. 3. face (nose, lips, profile) and RVOT are not well seen. Otherwise normal anatomic survey. -Recommend follow-up OB ultrasound. Dictated by: Merrick Robertson M.D. on 12/23/2020 at 9:29 Approved by: Merrick Robertson M.D. on 12/23/2020 at 9:36
== END ==
PROVIDERS: PCP Family Medicine; Referring Provider Obstetrics & Gynecology; Visit Provider Obstetrics & Gynecology
DX: Z34.82 Encounter for supervision of other normal pregnancy, second trimester (principal); Z3A.19 19 weeks gestation of pregnancy
CPT/HCPCS: 76811

== ENCOUNTER → 2024-07-18 07:00 | Outpatient (CLI) | payer OTHER, SELFPAY ==
--- NOTE | 2024-07-18 07:02 | DI.US.S_ITS ---
PROCEDURE: US THYROID INDICATIONS: NODULES TECHNIQUE: Real-time scanning was performed of the thyroid gland, with image documentation. COMPARISON: None. FINDINGS: Thyroid: Right lobe measures 5.3 x 1.6 x 1.7 cm. Left lobe measures 4.6 x 1.4 x 1.7 cm. Isthmus is 5 cm thick. Echotexture is heterogenous. Multiple bilateral nodules are present. Nodule number: 1 (based on worksheet, previously biopsied and found to be benign at external site) Location: Left superior pole Size: 1.1 x 0.6 x 0.7 cm. Composition: Solid Echogenicity: Hypoechoic Shape: wider than tall. Margins: Smooth Echogenic foci: None Total points: 4 ACR TI-RADS category: Moderately suspicious Nodule number: 2 Location: Isthmus Size: 1.2 x 0.5 x 1.0 cm. Composition: Solid Echogenicity: Isoechoic Shape: wider than tall. Margins: Smooth Echogenic foci: None Total points: 4 ACR TI-RADS category: Moderately suspicious IMPRESSION: 1. Multiple thyroid nodules. 2. Moderately suspicious left superior pole 1.1 cm and isthmus 1.2 cm nodules. Follow-up thyroid ultrasound per the below guidelines. Please note that the follow-up intervals would be dictated by the 1st thyroid ultrasound exam. ACR TI-RADS definitions and recommendations: TI-RADS 1 (benign): 0 points. FNA not needed. TI-RADS 2 (not suspicious): 2 points. FNA not needed. TI-RADS 3 (mildly suspicious): 3 points. * FNA if 2.5 cm or larger, follow up if 1.5 cm or larger (at 1, 3, and 5 years). TI-RADS 4 (moderately suspicious): 4-6 points. * FNA if 1.5 cm or larger, follow up if 1 cm or larger (at 1, 2, 3, and 5 years). TI-RADS 5 (highly suspicious): 7 points or more. * FNA if 1 cm or larger, follow up if 0.5 cm or larger (every year for 5 years). Dictated by: Ezequiel Johnson M.D. on 07/18/2024 at 13:06 Approved by: Ezequiel Johnson M.D. on 07/18/2024 at 13:19
[2024-07-18 09:12] LABS: Cholesterol 225 mg/dL (140-199); HDL Cholesterol 73 mg/dL (40-60); LDL Cholesterol Calculated 132 mg/dL (<100); Triglycerides 98 mg/dL (35-150)
[2024-07-18 09:27] LABS: Vitamin D 25 Hydroxy (D3) 34.5 ng/mL (30.0-100.0)
[2024-07-18 09:34] LABS: Hemoglobin A1C% w Est Avg Glu 4.7 % (4.0-6.0)
== END ==
PROVIDERS: PCP Family Medicine; Referring Provider Family Medicine; Visit Provider Family Medicine
DX: E04.2 Nontoxic multinodular goiter (principal); Z13.220 Encounter for screening for lipoid disorders; Z13.1 Encounter for screening for diabetes mellitus; E55.9 Vitamin D deficiency, unspecified
CPT/HCPCS: 36415; 76536; 80061; 82306; 83036

== ENCOUNTER → 2024-09-14 13:20 | Outpatient (CLI) | payer OTHER, SELFPAY | PROVIDERS: PCP Family Medicine; Referring Provider Internal Medicine; Visit Provider Internal Medicine | DX: Z23 Encounter for immunization (principal) | CPT/HCPCS: 90471; 90656 ==

== ENCOUNTER → 2025-08-01 12:12 | Outpatient (CLI) | payer OTHER, SELFPAY ==
--- NOTE | 2025-08-01 12:13 | DI.MG.S_ITS ---
MM diagnostic mammo BI, US breast LT limited: 08/01/2025 BI-RADS: 2 CLINICAL: 40-year old female for bilateral diagnostic mammogram and left diagnostic breast ultrasound. Tyrer-Cuzick lifetime risk of 26.6%. No personal or first- degree family history of breast cancer. Current reported family history of breast cancer: maternal grandmother, maternal aunt and paternal aunt. The patient reports a palpable abnormality (more than 2 years) in the left breast. PRIOR EXAMS 05/31/2020. MAMMOGRAPHY TECHNIQUE: 2D and 3D (tomosynthesis) digital mammographic views obtained, with additional images as needed for full coverage. Current study was also evaluated with a Computer Aided Detection (CAD) system. ULTRASOUND TECHNIQUE TARGETED Left Breast Ultrasound: Real-time ultrasound exam was performed focused to area of clinical and/or imaging concern. Real-time haas scale and color doppler imaging of the area of clinical interest was performed with image documentation. DENSITY C. The breasts are heterogeneously dense, which may obscure small masses. MAMMOGRAPHY FINDINGS Right: No suspicious mass, asymmetry, microcalcification, or other abnormality seen. Left (finding-1): Outer Central, Middle depth: A skin marker was placed in the area of concern, and no mammographic abnormalities are identified or to account for concern by the patient of a palpable lump. No suspicious mass, asymmetry, microcalcification, or other abnormality seen. Left (finding-2): Lower Inner Quadrant, Middle depth: A skin marker was placed in the area of concern, and no mammographic abnormalities are identified or to account for concern by the patient of a palpable lump. No suspicious mass, asymmetry, microcalcification, or other abnormality seen. ULTRASOUND FINDINGS Left: Outer at 3:00, 9 cm from nipple, measuring 0.7 x 0.3 x 0.7 cm - previously measuring (05/31/2020) 0.9 x 0.3 x 0.7 cm: Correlating with prior imaging concern there is an intramammary lymph node. This finding has demonstrated greater than two years of stability and is consistent with a benign etiology. Left: Outer at 3:00, 9 cm from nipple, measuring 0.5 x 0.4 x 0.3 cm - previously measuring (05/31/2020) 0.5 x 0.4 x 0.3 cm: Correlating with prior imaging concern there is an intramammary lymph node. This finding has demonstrated greater than two years of stability and is consistent with a benign etiology. Left (finding-1): Outer at 3:00, 9 cm from nipple: Underlying the surface marker, there is no sonographic abnormality to account for concern by the patient of a palpable lump. Left (finding-2): Lower Inner at 7:00, 6 cm from nipple: Underlying the surface marker, there is no sonographic abnormality to account for concern by the patient of a palpable lump. IMPRESSION: Right * No evidence of malignancy. Left * No evidence of malignancy with benign findings. RECOMMENDATIONS Bilateral * According to the Tyrer-Cuzick Risk Assessment Model, based on the information provided your patient has a greater than 20% lifetime risk for developing breast cancer. Consider supplemental screening with breast MRI and participation in a high risk screening program. * Annual screening mammography. COMMENTS: Findings and recommendations were conveyed to the patient during today's evaluation. OVERALL ASSESSMENT CATEGORY BI-RADS-2: Benign. The [employer] recommends annual screening mammography beginning at age 40 for women with average risk of breast cancer. ELECTRONICALLY SIGNED: Alexandria Devi M.D. on 08/01/2025 at 01:28:07 PM PT Interpreting Station ID: [id number]
== END ==
LOC: MAMMO 12:12
PROVIDERS: PCP Family Medicine; Referring Provider Family Medicine; Visit Provider Family Medicine
DX: R92.8 Other abnormal and inconclusive findings on diagnostic imaging of breast (principal); N63.20 Unspecified lump in the left breast, unspecified quadrant; R92.333 Mammographic heterogeneous density, bilateral breasts; Z80.3 Family history of malignant neoplasm of breast
CPT/HCPCS: 76642; 77066; G0279